=== PATIENT | female | born 1980 | race Caucasian/White ===

== ENCOUNTER 2023-04-16 07:19 | Emergency (ER) | payer OTHER ==
[2023-04-16 07:24] VITALS: BP 146/79; RESP 18; BMI 24.3
[2023-04-16] MEDS ORDERED: ACETAMINOPHEN 500 MG TABLET (FP) ONE (08:24)
[2023-04-16] MEDS: ACETAMINOPHEN 500 MG TABLET (FP) PO ONE (08:26)
[2023-04-16] MEDS ORDERED: DIPHTH,PERTUSS(ACELL),TET 0.5 ML DISP.SYRIN IM ONE (08:31)
[2023-04-16] MEDS: DIPHTH,PERTUSS(ACELL),TET 0.5 ML DISP.SYRIN IM ONE (08:35)
[2023-04-16 11:52] VITALS: PULSE 107
== END 2023-04-16 13:19 | disposition home or self-care (01) ==
LOC: JER 07:19
PROC: 0HQ0XZZ Repair Scalp Skin, External Approach (ICD-10-PCS; principal; 2023-04-16)
PROC: 3E0234Z Introduction of Serum, Toxoid and Vaccine into Muscle, Percutaneous Approach (ICD-10-PCS; 2023-04-16)
DX: S01.01XA Laceration without foreign body of scalp, initial encounter (principal); W25.XXXA Contact with sharp glass, initial encounter
CPT/HCPCS: 12004; 70450-TC; 72125-TC; 90471; 90715; 93005; 93010; 99284-25